=== PATIENT | male | born 1975 | race Caucasian/White ===

== ENCOUNTER → 2024-02-22 | Outpatient (REF) | payer BC, SELFPAY | LOC: DHSLP | PROVIDERS: ATTENDING PHYSICIAN Internal Medicine | DX: G47.33 Obstructive sleep apnea (adult) (pediatric) (principal) | CPT/HCPCS: 95800 ==

== ENCOUNTER → 2024-08-17 10:11 | Outpatient (REF) | payer BC, SELFPAY | LOC: RAD 10:11 | PROVIDERS: ATTENDING PHYSICIAN Chiropractor | DX: M99.01 Segmental and somatic dysfunction of cervical region (principal); M99.03 Segmental and somatic dysfunction of lumbar region; M99.06 Segmental and somatic dysfunction of lower extremity | CPT/HCPCS: 72050; 72110; 73564 ==

== ENCOUNTER 2025-05-09 16:29 | Emergency (ER) | payer BC, SELFPAY ==
[2025-05-09 16:34] VITALS: BP 145/92
[2025-05-09 16:54] LABS: % Basophils 1.1 % (0-2); % Eosinophils 2.7 % (0-6); % Immature Granulocytes 0.4 % (0-0.5); % Monocytes 9.9 % (1.7-9.3); % Neutrophils 42.9 % (42.2-75.2); Absolute Basophils 0.1 10^3/uL (0-0.2); Absolute Eosinophils 0.2 10^3/uL (0-0.7); Absolute Lymphocytes 3.6 10^3/uL (1.2-3.4); Absolute Monocytes 0.8 10^3/uL (0.1-0.6); Absolute Neutrophils 3.6 10^3/uL (1.4-6.5); Hemoglobin 15.1 g/dL (13.0-18.0); Mean Corpuscular Hgb 31.4 pg (27.0-31.0); Mean Corpuscular Volume 87.3 fL (80.0-94.0); Mean Platelet Volume 9.7 fL (7.4-10.4); Nucleated Red Blood Cells % 0 % (-); Platelet Count 321 10^3/uL (130-400); Red Blood Cell Count 4.81 10^6/uL (4.70-6.10); Red Cell Dist. Width 12.1 % (11.5-14.5); White Blood Cell Count 8.5 10^3/uL (4.8-10.8)
[2025-05-09 17:07] LABS: ALT (SGPT) 16 U/L (0-50); AST (SGOT) 24 U/L (17-59); Albumin 4.5 g/dl (3.5-5.0); Alkaline Phosphatase 61 U/L (38-126); Blood Urea Nitrogen 15 mg/dl (9-20); Calcium 9.5 mg/dl (8.4-10.2); Carbon Dioxide 24 mmol/L (22-30); Chloride 105 mmol/L (98-107); Glucose 90 mg/dl (70-99); Potassium 4.2 mmol/L (3.5-5.1); Sodium 137 mmol/L (135-145); Total Bilirubin 0.8 mg/dl (0.2-1.3); Total Protein 7.2 g/dl (6.3-8.2); eGFR > 60.00
[2025-05-09 17:18] LABS: Troponin I < 0.012 ng/ml
[2025-05-09 17:24] VITALS: BP 128/96
[2025-05-09 17:33] VITALS: BMI 29.3
[2025-05-09 18:00] VITALS: BP 125/88
[2025-05-09 19:00] VITALS: BP 118/86
--- NOTE | 2025-05-09 19:07 | EDRN ---
Pt OOB to BR and back to bed. No further arm pain.
--- NOTE | 2025-05-09 19:30 | ED.GENMED ---
History of Present Illness
General
Chief Complaint: Chest Pain
Source: patient
Exam Limitations: none
Time Seen by Provider: 05/09/25 19:30
Nursing documentation reviewed up to this point in time: agreed with
History of Present Illness
History of Present Illness:
Patient is a 50-year-old male who presents to the emergency department with evaluation of left shoulder pain associated with chest tightness which occurred last night. Patient states he was driving in his car yesterday evening when he began with
acute onset pain in his left shoulder. He reports a stabbing type pain in his left shoulder and also noticing a tightness sensation in his left chest. This persisted for a few hours although did resolve after taking some Aleve. At this time�he
states that he is completely asymptomatic although became concerned that this was representing a cardiac event rather than muscular pain prompting visit to the emergency department.
He denies any associated shortness of breath, severe back pain, radiation of pain to his jaw. He denies any diaphoresis or lightheadedness.
Patient does report a relatively active job and states he has not noticed any exertional fatigue, chest pain, or shortness of breath
Patient does have a history of somewhat chronic pain in left shoulder although he states this pain is very different. He did have rotator cuff surgery on his right shoulder many years ago.
Patient has no personal history of CAD. However he does have a significant family history of coronary disease.
Past History
Past History
ED Past Medical History: None
ED Past Surgical History: None
Review of Systems
Review of Systems
Allergies reviewed?: Yes
All Other Systems: ROS reviewed and negative except as documented in HPI and ROS
Phy Exam
Physical Exam
Physical Exam:
Vitals: Mildly hypertensive, otherwise vital signs stable. Afebrile
General: Patient is well appearing, no acute distress. Nontoxic appearing
Skin: Warm and dry, no rashes or lesions
Head: Normocephalic, atraumatic
Eyes: Sclera nonicteric. EOMs intact. No nystagmus.
Throat: Protecting airway
Neck: Normal ROM, no cervical spine tenderness, no meningismus
Cardiac: Regular rate and rhythm, no murmurs. No reproducible chest wall tenderness. 2+ palpable radial pulses bilaterally
Pulm: Normal respiratory effort, no wheezes, rales, rhonchi heard on exam
.
Abdomen: Abdomen soft and nontender
Extremities: No evidence of cyanosis or edema. Patient has full range of motion in left upper extremity without pain and no bony tenderness left upper extremity neurovascularly intact.
Neuro: AAOx3. Grossly intact.
Psychiatric: Normal affect.
Scores
Heart Score for Chest Pain Patients
STEMI patient?: No
History: Slightly or Non-Suspicious
ECG: Normal
Age: >45 - <65 years
Risk Factors: 1 or 2 Risk Factors
Troponin: </= Normal Limit
Heart Score for Chest Pain Patients: 2
Heart Score Risk: 2.5% MACE over next 6 weeks
Course
Orders/Labs/Results
Orders:
Orders
05/09/25 16:31
ECG [Electrocardiogram (*1)] Urgent
Reason for Study: Chest Pain
EKG- Treatment ONCE
05/09/25 16:44
Complete Blood Count/With Diff Urgent
Comprehensive Metabolic Panel Urgent
Troponin I Urgent
05/09/25 19:45
Electrocardiogram (*1) Urgent
Reason for Study: Chest Pain
EKG- Treatment ONCE
CR Chest - 2 Views Urgent
Comment:
Reason For Exam: Left shoulder pain
05/09/25 20:01
Troponin I Urgent
Abnormal Lab Results
05/09/25
16:44
MCH 31.4 H pg
(27.0-31.0)
Absolute Lymphs (auto) 3.6 H 10^3/uL
(1.2-3.4)
Absolute Monos (auto) 0.8 H 10^3/uL
(0.1-0.6)
Monocytes % 9.9 H %
(1.7-9.3)
05/09/25 16:44
05/09/25 16:44
Vital Signs
Initial and Last Documented VS:
Initial Vital Signs
Temp Pulse Resp BP Pulse Ox
98 F 66 16 145/92 98
05/09/25 16:34 05/09/25 16:34 05/09/25 16:34 05/09/25 16:34 05/09/25 16:34
Last Documented Vital Signs
Temp Pulse Resp BP Pulse Ox
98 F 55 14 124/80 96
05/09/25 16:34 05/09/25 20:15 05/09/25 20:15 05/09/25 20:00 05/09/25 20:15
MDM/Problems Addressed
Differential Diagnosis Includes:
Not limited to: Muscle strain/tear, neuropathic pain, unstable angina, costochondritis,
MDM/Problems Addressed:
50-year-old male presenting after episode of left shoulder pain last night with some radiation to his left chest. He is completely asymptomatic at this time and has been all day. Symptoms were not exertional and non-pleuritic in nature. No
associated shortness of breath, lightheadedness, back pain, diaphoresis. No known history of CAD. Patient mildly hypertensive on arrival, although improved by my assessment. Vital signs otherwise stable. Physical exam as above. Cardiac/pulmonary
assessment unremarkable. No reproducible chest tenderness. Patient has no bony tenderness in left upper extremity and full active range of motion. Left upper extremity neurovascularly intact. Labs obtained prior to my assessment without any
clinically significant abnormalities. Initials troponin undetectable. EKG reveals normal sinus rhythm without any evidence of arrhythmia or acute ischemic changes.
Ultimately � very atypical symptoms, less likely acute coronary syndrome or acute cardiac emergency. Possible muscular pain versus neuropathic in nature. However � will repeat troponin and check chest x-ray for further evaluation.
Update: repeat EKG remains unchanged with undetectable troponin. Chest x-ray without acute findings. Work-up in emergency department negative and patient remained asymptomatic and stable. Feel stable for discharge home with primary care. Gave
contact information for cardiology. Return precautions discussed.
Chronic conditions affecting care:
N/A
Acute Exacerbation and/or Progression of Chronic Illness:
N/A
*Radiology
Radiology exam reviewed: preliminary read by ED provider (Chest x-ray reviewed by sc-no acute abnormalities)
*Pulse Oximetry
SaO2: 98
Oxygen Mode of Delivery: Room air
Patient hypoxic: no
*EKG
Interpreted by ED Provider?: Yes
EKG Intrepretation Date: 05/09/25
Interpretation: normal
Comparison EKG: no comparison EKG present
Heart Rate: 66
Rate: normal
Rhythm: sinus
Sheldon: normal axis
Interval: normal QT interval
QRS Pattern: normal QRS
Ischemia: no ischemia
*Enrichment Assistant Interpretation
Rate: normal
Interpretation: normal
Heart Rate: 64
Rhythm: sinus
*Critical Care Note
Total Time (30-74mins, 75-104mins- exclusive of procedures): Not Applicable
ED Attending Note
-
Portions of this chart may have been created with voice recognition software.� Occasional wrong word or��sound alike� substitutions may have occurred due to the inherent limitations of voice recognition software.
Discharge Plan
Departure
Patient Disposition: Home (Routine Discharge)
Date of Disposition: 05/09/25
Time of Disposition: 21:03
Patient with high blood pressure during this ER visit?: Yes
Condition: Good
Discharge Problem:
Left shoulder pain, Chest tightness
Instructions: Chest pain - Discharge instructions, BLOOD PRESSURE
Prescriptions:
No Action
No Current Medications
0
Referrals:
Naresh Sánchez MD [Active, Cardiology] - Call in 1-3 days for appt
Suleman Haas DO [Family Provider, Family Practice]
Activity Restrictions/Additional Instructions:
RETURN TO THE EMERGENCY DEPARTMENT WITH ANY FEVERS, SHORTNESS OF BREATH, CHEST PAIN WORSE WITH EXERTION OR ASSOCIATED WITH SHORTNESS OF BREATH, LIGHTHEADEDNESS, SWEATINESS, NAUSEA, SEVERE BACK PAIN, NUMBNESS/TINGLING OR COOLNESS OF LEFT ARM/FINGERS,
OR ANY OTHER CONCERNS
- As discussed�your lab work and chest x-ray in the emergency department showed no acute abnormalities. Your EKG appeared normal.
- It is important to get plenty of rest and stay well-hydrated. Please follow-up with your orthopedic for further evaluation/management of shoulder as this may require further imaging/intervention
- Please follow-up with cardiology for further evaluation/management given your family history
Monitor your symptoms closely and return to the emergency department with any acute worsening/new symptoms or any other concerns
Interventions
Interventions:
*Risk Screen - Suicide Last Done: 05/09/25 16:34
*General Assessment Last Done: 05/09/25 17:33
*Neglect/Abuse Screening Last Done: 05/09/25 16:34
*ED- Fall Risk Assessment Last Done: 05/09/25 17:33
*ED COVID-19 Vaccine History Last Done: 05/09/25 17:33
*Nursing Disposition Last Done: 05/09/25 21:27
ED- Cardiac Assessment Last Done: 05/09/25 17:36
Discharge Date and Time
Discharge Date/Time: 05/09/25 21:29
Print Language: [email or web address]
[2025-05-09 20:00] VITALS: BP 124/80
--- NOTE | 2025-05-09 20:00 | EDRN ---
Report received, introduced myself to patient and did repeat lab and EKG and took patient to xray, no pain at this time.
[2025-05-09 20:46] LABS: Troponin I < 0.012 ng/ml
== END 2025-05-09 21:29 | disposition home or self-care (01) ==
LOC: EMR 16:29
PROVIDERS: Physician Assistant; EMERGENCY PHYSICIAN Student in an Organized Health Care Education/Training Program; FAMILY PHYSICIAN Family Medicine
DX: M25.512 Pain in left shoulder (principal); R07.89 Other chest pain
CPT/HCPCS: 99285; 71046; 80053; 84484; 85025; 93005

== ENCOUNTER → 2025-06-25 13:01 | Outpatient (REF) | payer BC, SELFPAY | LOC: RCS 13:01 | PROVIDERS: ATTENDING PHYSICIAN Internal Medicine Cardiovascular Disease; FAMILY PHYSICIAN Family Medicine | DX: R07.9 Chest pain, unspecified (principal) | CPT/HCPCS: 93017; 93350 ==